=== PATIENT | male | born 1950 | race Caucasian/White ===

== ENCOUNTER 2022-07-30 18:47 | Emergency (ER) | payer MEDICARE, OTHER, SELFPAY ==
[2022-07-30 18:48] VITALS: BP 172/87; PULSE 50; RESP 18; TEMP 36; O2SAT 95; BMI 27.1
--- NOTE | 2022-07-30 19:59 | CT_ITS ---
EXAM: CT SPINE - CERVICAL WITHOUT IV REASON FOR EXAM: Male, 72 years old. NECK PAIN fall HISTORY: NECK PAIN fall Individualized dose optimization techniques were used for this CT. TECHNIQUE: Multiplanar images were obtained of the cervical spine. IV contrast was not utilized. COMPARISON: None. FINDINGS: The vertebral bodies do maintain their height. The odontoid process is intact. No pre-vertebral soft tissue swelling is seen. The intravertebral disc height is lost. There are scattered lymph nodes in the neck. There are degenerative changes of the osseous structures. There is bilateral facet arthropathy. There are scattered levels of foraminal stenosis. There are vascular calcifications. CT/Spine Cervical without Contras IMPRESSION: Degenerative changes of the cervical spine. There are no acute findings. Electronically Signed: Ricardo Bustamante MD at 20:41 EST Reading Location ID and State: [facility] / [place] , Service support ,
--- NOTE | 2022-07-30 19:59 | CT_ITS ---
STUDY: CT BRAIN WITHOUT CONTRAST REASON FOR EXAM: Male, 72 years old. fall TECHNIQUE: Transaxial CT imaging of the brain was performed without administration of intravenous contrast material. Individualized dose optimization techniques were used for this CT. COMPARISON: None FINDINGS: Normal calvarium. There is a nasal bone fracture. Soft tissue swelling of the nose. There are small dense foreign bodies in the soft tissue around the nose and lips. Normal size ventricles and extra-axial spaces for the patient''s age. There are areas of decreased attenuation within the white matter tracts of the supratentorial brain, consistent with microvascular disease changes. Normal basal ganglia and thalami. Normal brainstem. Normal cerebellum. There is no intracranial hemorrhage. There are no findings of an acute ischemic infarction. Normal visualized paranasal sinuses. ASPECTS 10 CT/Brain/Head without Contrast IMPRESSION: There are no acute intracranial findings. There is a nasal bone fracture. Soft tissue swelling of the nose. There are small dense foreign bodies in the soft tissue around the nose and lips. Electronically Signed: Ricardo Bustamante MD at 20:39 EST ,
--- NOTE | 2022-07-30 20:02 | EDS_ITS ---
HPI History of Present Illness Chief Complaint: Fall Informant: patient and family Onset/Context/Timing Onset: Today Current Severity: Moderate Maximum Severity: Moderate Narrative Narrative: Patient presents with facial injuries after a fall. He [place] when he tripped on a step and fell forward. He has lacerations to his face along with a chipped tooth. He has abrasions to his bilateral hands as well. He denies loss of consciousness. He states he just recently had a tetanus update. [facility] Medical History (Updated 07/30/22 @ 22:[address] Annie De La Cruz MD) Acid reflux Hypercholesteremia Hypertension Hypothyroid Home Medications albuterol 90 mcg/actuation aerosol inhaler 90 mcg inhalation 4X/DAY PRN SOB 07/30/22 [History Last Taken Unknown] amlodipine 5 mg tablet 5 mg PO DAILY 07/30/22 [History Last Taken Unknown] aspirin 81 mg tablet,delayed release 81 mg PO DAILY 07/30/22 [History Last Taken Unknown] cephalexin 500 mg capsule 500 mg PO Q6 #40 caps 07/30/22 [Rx Last Taken Unknown] levothyroxine 50 mcg tablet 50 mcg PO DAILY 07/30/22 [History Last Taken Unknown] metoprolol tartrate 25 mg tablet 25 mg PO BID 07/30/22 [History Last Taken Unknown] pantoprazole 40 mg tablet,delayed release 40 mg PO DAILY 07/30/22 [History Last Taken Unknown] valsartan 320 mg tablet 320 mg PO DAILY 07/30/22 [History Last Taken Unknown] Allergy/AdvReac Type Severity Reaction Status Date / Time No Known Allergies Allergy Verified 07/30/22 18:47 Social History Smoking Status: Never smoker [facility] ED Constitutional Constitutional ED: Denies chills or fever(s) Eyes Eyes: Denies change in vision or discharge from eye(s) ENT ENT ED: Reports other Details: Facial pain with multiple lacerations. ; Denies discharge from eye(s), rhinorrhea or sore throat Cardiovascular Cardiovascular: Denies chest pain or palpitations Respiratory/Chest Respiratory/Chest: Denies cough or dyspnea Gastrointestinal Gastrointestinal: Denies abdominal pain, diarrhea, nausea or vomiting Genitourinary Genitourinary ED: Denies dysuria Musculoskeletal Musculoskeletal: Reports extremity pain; Denies back pain or neck pain Integumentary Reports other Details: Multiple facial lacerations. ; Denies Abrasions or rash Neurologic Neurologic: Denies headache(s) or weakness Allergic/Immunologic Allergic/Immunologic ED: Denies lip swelling or urticaria EXAM Physical Exam Const Vital Signs: 07/30/22 18:48 07/30/22 20:05 Temperature 96.8 F L Temperature Source Temporal Pulse Rate 50 L Respiratory Rate 18 Respiratory Effort Normal Non-Labored Blood Pressure 172/87 H Blood Pressure Mean 115 Pulse Ox 95 Oxygen Delivery Method Room Air Room Air Positive well nourished and well developed General Appearance ED: well developed HEENT HEENT Narrative: 3 cm laceration across the lower mid forehead. He has a 3 cm laceration across his nose with a 1 cm laceration down the midline of his nose. There is a 3 cm laceration across the upper lip. The right upper central incisor has a small chip off the inferior surface. Eyes PERRL and EOMs intact bilaterally Neck supple Chest Wall inspection of chest normal and palpation of chest normal Resp normal respiratory effort and clear to auscultation bilaterally Cardio regular rate and regular rhythm GI normal to inspection, nondistended, normoactive bowel sounds Palpation: soft Extremity Extremity Narrative: Small skin avulsions noted to the distal aspect of the right third and fourth fingers. Skin avulsion noted to the distal aspect of the left fourth finger. No bony tenderness with good range of motion of all digits. Neuro oriented x3 and no sensory deficits noted Sensorium / Orientation: alert Motor Exam: strength 5/5 throughout Psych mental status grossly normal MDM MDM MDM Narrative Medical decision making narrative: Patient sent for CT scan of the head, neck, facial bones. Radiography Diagnostic Testing: Clinical Impression(s) from Imaging Studies Brain CT 07/30/22 19:59 IMPRESSION: There are no acute intracranial findings. There is a nasal bone fracture. Soft tissue swelling of the nose. There are small dense foreign bodies in the soft tissue around the nose and lips. Electronically Signed: Ricardo Bustamante MD at 20:39 EST Reading Location ID and State: [facility] / [place] , Service support , Cervical Spine CT 07/30/22 19:59 IMPRESSION: Degenerative changes of the cervical spine. There are no acute findings. Electronically Signed: Ricardo Bustamante MD at 20:41 EST , Facial/Sinus 07/30/22 20:05 IMPRESSION: There is a nasal bone fracture. Soft tissue swelling of the nose. There are small dense foreign bodies in the soft tissue around the nose and lips. Electronically Signed: Ricardo Bustamante MD at 20:39 EST , Treatment and Re-Evaluation Narrative: CT scans of the head, C-spine, facial bones reveal nasal bone fracture. Soft tissue swelling the nose is noted. No other acute findings appreciated. The 3 cm forehead laceration is anesthetized with 3 cc of 1% lidocaine. Wound is cleansed and irrigated. 8 simple interrupted sutures of 5-0 nylon are placed. The nasal lacerations are anesthetized with 3.5 cc of 1% lidocaine. A total of 9 simple interrupted sutures of 5-0 nylon were used to close the wounds. The upper lip laceration is anesthetized with 3.5 cc of 1% lidocaine. 8 simple interval sutures of 5-0 nylon are used to close the wound. Test results are discussed with the patient and his cousin at bedside. He will be staying with the cousin here locally [facility]. Because the patient has nasal lacerations and nasal bone fracture I will cover him with antibiotics. He is to have sutures removed in 1 week. Discharge Plan Triage Chief Complaint: Fall ED Provider: Annie De La Cruz Dx/Rx/DC Orders Clinical Impression: Fall, Open fracture nasal bone, Face lacerations Instructions: ED Nose Fracture, with X-Ray, ED FACIAL LACERATION Suture Tape Prescriptions: New cephalexin 500 mg capsule 500 mg PO Q6 Qty: 40 0RF No Action amlodipine 5 mg Tablet 5 mg PO DAILY aspirin [Aspir-81] 81 mg Tablet,Delayed Release (Dr/Ec) 81 mg PO DAILY levothyroxine 50 mcg Tablet 50 mcg PO DAILY pantoprazole 40 mg Tablet,Delayed Release (Dr/Ec) 40 mg PO DAILY valsartan 320 mg Tablet 320 mg PO DAILY albuterol 90 mcg/actuation Aerosol 90 mcg INHALATION 4X/DAY PRN (Reason: SOB) metoprolol tartrate 25 mg Tablet 25 mg PO BID Primary Care Provider: Care Physician,No Primary Referrals: [facility] Doctor,Out of [Non-Staff] - 7 Days for suture removal Disposition Disposition: Home, Self Care
--- NOTE | 2022-07-30 20:05 | CT_ITS ---
EXAM: CT MAXILLOFACIAL WITHOUT INTRAVENOUS CONTRAST CLINICAL INDICATION: trauma Technologist Notes FELL ONTO FACE. LAC TO FOREHEAD, MULTIPLE ABRASIONS, LIP LAC, BROKEN TOOTH. TECHNIQUE: Helically acquired images were obtained of the face without intravenous contrast. This CT exam was performed using one or more of the following dose reduction techniques: automated exposure control, adjustment of the mA and/or kV according to patient size, and/or use of iterative reconstruction technique. This report was created using [employer] report 5to1 technology. COMPARISON: None. FINDINGS: BONES/JOINTS: There is a nasal bone fracture. Soft tissue swelling of the nose. There are small dense foreign bodies in the soft tissue around the nose and lips. There are degenerative findings of the cervical spine. No discrete lytic or blastic abnormalities. SOFT TISSUES: See above. ORBITS: No retrobulbar hematoma. Both globes are unremarkable. Extraocular muscles are normal. Retrobulbar fat appears unremarkable. SINUSES: There is sinus disease. Air-fluid level in the right maxillary sinus. There is a mucous retention cyst and/or polyp of the left maxillary sinus. MASTOID AIR CELLS: Unremarkable as visualized. Clear. DENTAL: No acute findings. No periodontal osseous erosion. CT/Sinus/Facial Bone IMPRESSION: There is a nasal bone fracture. Soft tissue swelling of the nose. There are small dense foreign bodies in the soft tissue around the nose and lips. Electronically Signed: Ricardo Bustamante MD at 20:39 EST Reading Location ID and State: [facility] / [place] , Service support ,
== END 2022-07-30 22:55 | disposition home or self-care (01) ==
PROVIDERS: Emergency Provider Emergency Medicine; Visit Provider Emergency Medicine
DX: S02.2XXA Fracture of nasal bones, initial encounter for closed fracture (principal); I10 Essential (primary) hypertension; S01.81XA Laceration without foreign body of other part of head, initial encounter; W10.9XXA Fall (on) (from) unspecified stairs and steps, initial encounter; E78.00 Pure hypercholesterolemia, unspecified; E03.9 Hypothyroidism, unspecified; K21.9 Gastro-esophageal reflux disease without esophagitis
CPT/HCPCS: 12015; 70450; 70486; 72125; 99285